=== PATIENT | male | born 1965 | race Caucasian/White ===

== ENCOUNTER 2016-10-08 04:33 | Inpatient (IN) | payer BC ==
--- NOTE | ~2016-10-08 | OP ---
Record Of Operation [facility] [address] [place]. [address] NAME: MEEK CLAUDIO : 67 STATUS : DIS IN PAT#: [id number] AGE: 51 ADM/REG DATE : 10/08/16 MR#: [id number] REPORT SERV DATE: 10/10/16 DICTATED BY: JONNIE XIE II DATE: 10/10/16 REPORT STATUS : Draft TRANSCRIBED BY: MODL DATE: 10/10/16 DATE OF PROCEDURE: 10/08/2016 SECOND ATTENDING CO-SURGEON: Tavon Montanez MD PROSTHETIC ASSISTANT: Dr. Martinez. PREOPERATIVE DIAGNOSIS: Severe degenerative disc disease, L4-L5 with spondylolisthesis. POSTOPERATIVE DIAGNOSIS: Severe degenerative disc disease, L4-L5 with spondylolisthesis. PROCEDURES: 1. Anterior exposure of the lumbar spine. 2. Anterior lumbar interbody fusion with instrumentation at L4-L5. ANESTHESIA: General. ESTIMATED BLOOD LOSS: 150 mL. Please note, I am a co-surgeon on the case. I am only dictating a portion of the operative note. Remaining portion is found in a note by Dr. Montanez. DETAILS: The patient was taken to the operating room and placed in supine on the table. General anesthesia was achieved. Protective padding and a lumbar roll was placed. We then prepped and draped in a sterile fashion. An incision was made to the left of the umbilicus directly anterior to L4-L5. The rectus sheath was then divided along the length of the incision and the rectus muscle was retracted laterally. We entered the preperitoneal space and bluntly dissected into the retroperitoneal space and swept the peritoneum, the ureter, and abdominal contents to the right to expose the aorta and iliac vessels. The segmental vessels were then identified and ligated with 2-0 silk suture. Limited electrocautery was used at this location. With continued blunt dissection, we completely mobilized the aorta and the iliac vein, and exposed L4-L5 vertebral bodies and disc space and we marked this with fluoroscopy. A diskectomy with graft replacement and instrumentation was performed. Please see Dr. Montanez's notes for details of this. Once he had confirmed adequate placement of the instrumentation, we inspected the retroperitoneum. It was hemostatic. The ureter was intact. We removed the retractors and allowed the abdominal contents to return to their normal anatomic position. We then closed using running PDS and interrupted Vicryl suture. The skin was closed with Monocryl. At the end of the procedure, the patient was stable. He tolerated it well. JUAN DAVID/ALY Record Of [place] [id number] [place]. [address] NAME: MEEK CLAUDIO : 67 STATUS : DIS IN PAT#: [id number] AGE: 51 ADM/REG DATE : 10/08/16 MR#: [id number] REPORT SERV DATE: 10/10/16 DICTATED BY: JONNIE XIE II DATE: 10/10/16 REPORT STATUS : Draft TRANSCRIBED BY: ALY DATE: 10/10/16 Jonnie Xie II, M.D. / [id number] CC: Mary Vang II, D.O.
--- NOTE | ~2016-10-08 | OP ---
Record Of Operation [facility] [address] [place]. [address] NAME: MEEK CLAUDIO : 67 STATUS : DIS IN PAT#: [id number] AGE: 51 ADM/REG DATE : 10/08/16 MR#: [id number] REPORT SERV DATE: 10/12/16 DICTATED BY: MYNOR MONTANEZ II DATE: 10/12/16 REPORT STATUS : Draft TRANSCRIBED BY: MODL DATE: 10/12/16 DATE OF PROCEDURE: 10/08/2016 PREOPERATIVE DIAGNOSES: 1. L4-L5 instability with history of two lumbar laminectomies, L4-5. 2. 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 3. Low back pain secondary to L4-5 instability. 4. Edfq-oa-usduikxh degenerative disk disease, multilevel. POSTOPERATIVE DIAGNOSES: 1. L4-L5 instability with history of two lumbar laminectomies, L4-5. 2. 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 3. Low back pain secondary to L4-5 instability. 4. Ehvd-ct-gkocrekd degenerative disk disease, multilevel. PROCEDURES: Stage I (anterior). 1. L4-L5 anterior lumbar interbody arthrodesis. 2. Application of prosthetic device L4-L5. 3. Anterior instrumentation L4-L5. Stage II (posterior). 1. Posterior revision facetectomy with revision decompression of the L4 and L5 nerve roots. 2. Posterolateral arthrodesis L4-L5. 3. Posterior nonsegmental instrumentation L4-L5. 4. Use of local autograft, allograft substitute, and bone morphogenic protein. 5. Use of the microscope and stereotactic spinal imaging. SURGEON: Mynor Montanez M.D. (Dr. Thompson was the co-surgeon for the anterior interbody arthrodesis). FLUIDS: Approximately 3400 mL LR. EBL: 400 mL. DRAIN: One drain posteriorly. COMPLICATIONS: No complications. IMPLANTS: Globus anterior, Alphatec posterior. PREOPERATIVE HISTORY: This is a very friendly gentleman who is 51 years old, who had surgery in 2014 for radiculopathy. At that time, he did have significant back pain and significant facet degeneration but did not want to go with fusion at that point. He did relatively well with decreasing his leg pain. However, his back pain has intensified. We discussed the pros and cons of surgery for decreasing back pain and leg pain respectively. His facet Record Of Operation [facility] [address] [place]. [address] NAME: MEEK CLAUDIO : 67 STATUS : DIS IN PAT#: [id number] AGE: 51 ADM/REG DATE : 10/08/16 MR#: [id number] REPORT SERV DATE: 10/12/16 DICTATED BY: MYNOR MONTANEZ II DATE: 10/12/16 REPORT STATUS : Draft TRANSCRIBED BY: MODL DATE: 10/12/16 showed severe gapping. We overall discussed the merits of the various approaches. Overall, I felt that if we could limit the size of the incision on the posterior musculature, he likely would have a better recovery and have less back pain postoperatively. We did discuss the fact the does have multilevel degenerative changes, but overall the facet instability appeared to be his likely source of back and leg pain. DESCRIPTION OF PROCEDURE: After informed consent was obtained, the patient was brought to the operating room at his request and general anesthesia achieved. He was placed in the supine position. The abdomen was prepped and draped in a sterile fashion. Dr. Thompson performed the anterior retroperitoneal exposure. Under loupe magnification head lamp, the L4-5 disk was now identified and confirmed radiographically. We then removed the disk with the pituitary rongeurs, Kerrison rongeurs, and the curettes. The endplates were denuded of their cartilage. The punctate bleeding bone was identified on both endplates of L4 and L5. Next, the prosthetic device was trialed and chosen. This now contained allograft substitute and bone morphogenic protein. The prosthetic device was then well placed into the L4-5 disk space. Excellent fit was obtained. Next, the anterior instrumentation was applied with two screws into L4 and L5. The bone quality was marginal. Multiplanar imaging confirmed acceptable placement of the implants. Dr. Thompson performed retroperitoneal closure. Next, the patient was turned to the prone position. The back was prepped and draped in a sterile fashion. We then placed the iliac crest pin into the iliac crest followed by completion of the intraoperative CT scan. Stereotactic guidance was then used throughout the remainder of the case. Next, the right-sided approach was performed. The quadrant retractor was placed at L4-5. We used the 8 cm blades. Next, the microscope was brought into place. Under microscopic visualization, the complete facetectomy was performed. The facets were significantly deteriorated. Despite the anterior instrumentation, there was still obvious abnormal macro-motion of the facets. There was simply very little left of the inferior facet. The pars was now removed with high speed bur. A pedicle to pedicle decompression was achieved. The central canal was then identified. There was minimal central stenosis. The significant stenosis was of the lateral recess and the compression of the L5 nerve root. The L4 nerve root also exhibited significant compression from the superior facet. The remainder of the superior facet was now removed with the Kerrison rongeurs and the high-speed bur. The L4 nerve root did exhibit moderate edema. The L5 nerve root did as well. The area was now irrigated. Next, we did perform a Valsalva maneuver given the history of his CSF leak and no CSF was noted. Next, the decortication was performed of the transverse processes of L4 and L5 and local autograft, allograft substitute, and bone morphogenic protein was then applied. Record Of Operation [address] [address] NAME: MEEK CLAUDIO : 67 STATUS : DIS IN PAT#: [id number] AGE: 51 ADM/REG DATE : 10/08/16 MR#: [id number] REPORT SERV DATE: 10/12/16 DICTATED BY: MYNOR MONTANEZ II DATE: 10/12/16 REPORT STATUS : Draft TRANSCRIBED BY: ALY DATE: 10/12/16 Next, the instrumentation was now applied using stereotactic guidance. The 7.5 mm screws were placed into L4 and L5. A repeat CT scan confirmed acceptable placement of the implants. The eder was then well tightened. A deep drain was placed secondary to cancellous bone bleeding followed by standard closure. The patient was then extubated and transferred to PACU in stable condition. RIVKA/ALY Mynor Montanez II, M.D. / [id number] CC: Mary Vang II, D.O.
[~2016-10-08 04:33] MED LIST: ADVIL PO; BENICAR40 PO; BYSTOLIC10 MG PO; DIL2TAB PO; LORT7 PO; MEDROLPAK4 PO; METHOC750B PO; MOBIC15 MG PO; NORCO1 TA1 PO; NORCO1 TAB PO; OXYCOD PO; PR12.5 PO; PR12.5R PR; PREV30 PO; REG PO; RESTORIL30 MG PO; T PO; V5 PO; VALIUM10 MG PO; ZANTAC150 MG PO; ZOFRAN ODT4 MG PO; ZOFRAN8 PO
[2016-10-10] MEDS ORDERED: NORCO1 TAB PO (10:15)
[2016-10-10] MEDS ORDERED: PR25 PO (10:15)
== END 2016-10-10 14:44 | disposition home or self-care (01) | DRG 455 ==
LOC: SDC/OF 04:33 → PACU 11:07 → 3SO 13:07
PROVIDERS: Orthopaedic Surgery
PROC: 4A11X4G Monitoring of Peripheral Nervous Electrical Activity, Intraoperative, External Approach (ICD-10-PCS; 2016-10-08)
PROC: 0SG00A0 Fusion of Lumbar Vertebral Joint with Interbody Fusion Device, Anterior Approach, Anterior Column, Open Approach (ICD-10-PCS; principal; 2016-10-08 05:45)
PROC: 0SG0071 Fusion of Lumbar Vertebral Joint with Autologous Tissue Substitute, Posterior Approach, Posterior Column, Open Approach (ICD-10-PCS; 2016-10-08 05:45)
DX: M51.36 Other intervertebral disc degeneration, lumbar region (principal); I10 Essential (primary) hypertension
CPT/HCPCS: 36415; 80048; 82962; 85014; 85018; 86850; 86900; 86901; 87641; 88304; 88311; 93005; 97116-GP; 97161-GP; A9270-GY; C1713; J0690; J1644; J2250; J2405; J2710; J3010; J3370